=== PATIENT | female | born 1935 ===

== ENCOUNTER 2017-10-07 09:04 | Outpatient (CLI) | payer OTHER ==
[~2017-10-07] VITALS: Ht 157.5 cm; Wt 52.2 kg
[2017-10-07] MEDS ORDERED: LIPO-FLAVONOID1 EACH PO (11:13)
[2017-10-07] MEDS ORDERED: DERMOTIC20 ML OTIC (11:13)
[2017-10-07] MEDS ORDERED: CLARITIN10 MG PO (11:13)
== END 2017-10-07 09:20 | disposition home or self-care (01) ==
LOC: OFIC 805 09:04
DX: J31.0 Chronic rhinitis (principal); H61.21 Impacted cerumen, right ear; R42 Dizziness and giddiness; H90.3 Sensorineural hearing loss, bilateral